=== PATIENT | female | born 1985 | race Caucasian/White ===

== ENCOUNTER 2016-10-21 15:41 | Emergency (ER) | payer BC ==
[2016-10-21 15:51] VITALS: BP 121/75
--- NOTE | 2016-10-21 16:08 | EDM.PDOC ---
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 Ultrasound is not available at this facility this weekend. When patient was informed of this, she elected not to have a medical screening examination and plans to drive to [facility] in [place] where ultrasound is available. 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 (See Below) Other OB/BYN History: x1 - Infectious Disease History Infectious Disease History: Reports: Chicken Pox - Past Surgical History Musculoskeletal Surgical History: Reports: Other (See Below) Social & Family History - Family History Family Medical History: Noncontributory - Tobacco Use Smoking Status *Q: Never Smoker Second Hand Smoke Exposure: No - Recreational Drug Use Recreational Drug Use: No ED ROS GENERAL - Review of Systems Review Of Systems: Unable To Obtain (Patient declined medical screening exam.) ED EXAM - Physical Exam Exam: Not Obtained (Patient declined medical examination.) Course - Vital Signs Last Recorded V/S: Last Vital Signs Temp 36.4 C 10/21/16 15:50 Pulse 87 10/21/16 15:50 Resp 16 10/21/16 15:50 BP 121/75 10/21/16 15:50 Pulse Ox 100 10/21/16 15:50 Departure - Departure Time of Disposition: 16:05 Disposition: Left Without Being Seen 07 Condition: Undetermined Clinical Impression: Patient left without being seen - Discharge Information Forms: Refusal of Medical Screening I have read and agree with the documentation that has been completed regarding this visit. By signing this record, I attest that the documentation was completed in my physical presence and is an accurate record of the encounter.
== END 2016-10-21 16:03 | disposition left against medical advice (07) ==
LOC: DL.ED 15:41
DX: Z53.21 Procedure and treatment not carried out due to patient leaving prior to being seen by health care provider (principal)

== ENCOUNTER 2016-11-02 06:27 | Day surgery (SDC) | payer BC ==
[~2016-11-02 06:27] MED LIST: Oxytocin/Normal Saline 30 UNIT/500 ML BAG IV SCH; Sodium Chloride 0.9% 1,000 ML IV SCH; Sodium Chloride 0.9% 10 ML Syringe FLUSH PRN
[2016-11-02] MEDS ORDERED: Oxytocin/Normal Saline 30 UNIT/500 ML BAG ONE (06:29)
[2016-11-02] MEDS ORDERED: Ferric Subsulfate Topical Soln 8 GM (8 ML) Bottle ONE (06:29)
[2016-11-02] MEDS ORDERED: Silver Nitrate Applicator Each ONE (06:29)
[2016-11-02] MEDS ORDERED: Midazolam 1 MG/ML 2 ML SDV ONE (06:46)
[2016-11-02] MEDS ORDERED: Propofol 200 MG/20 ML SDV ONE (06:47)
[2016-11-02] MEDS ORDERED: Ondansetron 4 MG/2 ML SDV ONE (06:47)
[2016-11-02] MEDS ORDERED: fentaNYL 100 MCG/2 ML SDV ONE (06:47)
[2016-11-02] MEDS ORDERED: Lidocaine 1% 50 MG/5 ML Syringe ONE (06:47)
--- NOTE | 2016-11-02 07:07 | PCM.PREANE ---
Preanesthetic Assessment - Procedure Proposed Procedure: D&C - Anesthesia/Transfusion/Family Hx Anesthesia History: Prior Anesthesia Without Reaction Family History of Anesthesia Reaction: No Transfusion History: No Prior Transfusion(s) Intubation History: Unknown - Review of Systems General: No Symptoms Pulmonary: No Symptoms Cardiovascular: No Symptoms Gastrointestinal: No Symptoms Neurological: No Symptoms Other: Reports: None (complaining of pain due to cramping. ) - Physical Assessment NPO Status Date: 11/01/16 NPO Status Time: 20:00 Pulse: 80 O2 Sat by Pulse Oximetry: 100 Respiratory Rate: 16 Blood Pressure: 100/68 Temperature: 97.9 F Height: 1.68 m Weight: 58.06 kg ASA Class: 1 Mental Status: Alert & Oriented x3 Airway Class: Mallampati = 2 Dentition: Reports: Normal Dentition Thyro-Mental Finger Breadths: 3 Mouth Opening Finger Breadths: 3 ROM/Head Extension: Full Lungs: Clear to Auscultation, Normal Respiratory Effort Cardiovascular: Regular Rate, Regular Rhythm - Allergies Allergies/Adverse Reactions: Allergies Allergy/AdvReac Type Severity Reaction Status Date / Time No Known Allergies Allergy Verified 11/02/16 06:46 - Blood Blood Available: No Product(s) Available: None - Anesthesia Plan Pre-Op Medication Ordered: None - Acknowledgements Anesthesia Type Planned: General Anesthesia Pt an Appropriate Candidate for the Planned Anesthesia: Yes Alternatives and Risks of Anesthesia Discussed w Pt/Guardian: Yes Pt/Guardian Understands and Agrees with Anesthesia Plan: Yes Additional Comments: Pain scale of 5 to 6 due cramping. Treated with 100 mcg fentanyl preoperatively. 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 Other OB/BYN History: x2 Musculoskeletal History: Reports: None Neurological History: Reports: Headaches, Chronic Psychiatric History: Reports: None Endocrine/Metabolic History: Reports: None Hematologic History: Reports: Anemia, Other (See Below) Other Hematologic History: BLOOD TYPE B+ Immunologic History: Reports: None Oncologic (Cancer) History: Reports: None Dermatologic History: Reports: None - Infectious Disease History Infectious Disease History: Reports: Chicken Pox - Past Surgical History Head Surgeries/Procedures: Reports: None HEENT Surgical History: Reports: Oral Surgery Cardiovascular Surgical History: Reports: None Respiratory Surgical History: Reports: None GI Surgical History: Reports: None Female Surgical History: Reports: Section Endocrine Surgical History: Reports: None Neurological Surgical History: Reports: None Musculoskeletal Surgical History: Reports: Other (See Below) Other Musculoskeletal Surgeries/Procedures:: foot surgery. S/P BILAT FEET PLANTAR FASCITIS & SPUR REMOVAL 2009 Oncologic Surgical History: Reports: None Dermatological Surgical History: Reports: None - SUBSTANCE USE Smoking Status *Q: Former Smoker Second Hand Smoke Exposure: No Recreational Drug Use History: No - HOME MEDS Home Medications: Home Meds Ferrous Sulfate [Iron] 325 mg PO PCBREAKFAST 10/21/16 [History] Pnv No.122/Iron/Folic Acid [ Multi Tablet] 1 each PO DAILY 10/21/16 [ History] Acetaminophen [Acetaminophen Extra Strength] 1 - 2 tab PO ASDIRECTED PRN [History] Ibuprofen [Motrin] 1 tab PO Q6H PRN 11/01/16 [History] oxyCODONE HCl/Acetaminophen [Endocet 5-325 Tablet] 1 tab PO ASDIRECTED PRN 11/01 [History] - CURRENT (IN HOUSE) MEDS Current Meds: Current Medications Oxytocin/Sodium Chloride (Pitocin In Ns 30 Unit/500 Ml) 30 unit in 500 mls @ 25 mls/hr IV ONARRIVE BRE Sodium Chloride (Normal Saline) 1,000 mls @ 125 mls/hr IV ASDIRECTED BRE Sodium Chloride (Saline Flush) 10 ml FLUSH ASDIRECTED PRN PRN Reason: Keep Vein Open Discontinued Medications Fentanyl (Sublimaze) Confirm Administered Dose 200 mcg .ROUTE .STK-MED ONE Stop: 11/02/16 06:48 Ferric Subsulfate (Astringyn) Confirm Administered Dose 8 gm .ROUTE .STK-MED ONE Stop: 11/02/16 06:30 Oxytocin/Sodium Chloride (Pitocin In Ns 30 Unit/500 Ml) Confirm Administered Dose 30 unit in 500 mls @ as directed .ROUTE .STK-MED ONE Stop: 11/02/16 06:30 Lidocaine HCl (Xylocaine 1%) Confirm Administered Dose 50 mg .ROUTE .STK-MED ONE Stop: 11/02/16 06:48 Midazolam HCl (Versed 1 Mg/Ml) Confirm Administered Dose 2 mg .ROUTE .STK-MED ONE Stop: 11/02/16 06:47 Ondansetron HCl (Zofran) Confirm Administered Dose 4 mg .ROUTE .STNanigans-MED ONE Stop: 11/02/16 06:48 Propofol (Diprivan 20 Ml) Confirm Administered Dose 200 mg .ROUTE .STNanigans-MED ONE Stop: 11/02/16 06:48 Silver Nitrate (Silver Nitrate) Confirm Administered Dose 1 each .ROUTE .Trekea- MED ONE Stop: 11/02/16 06:30
[2016-11-02] MEDS ORDERED: Ketorolac 30 MG/ML SDV ONE (08:46)
--- NOTE | 2016-11-02 09:11 | PCM.POSTAN ---
POST ANESTHESIA ASSESSMENT - MENTAL STATUS Mental Status: Alert, Oriented - VITAL SIGNS Pulse Rate: 72 SaO2: 99 Resp Rate: 14 Blood Pressure: 122/72 Temperature: 97.8 F - RESPIRATORY Respiratory Status: Respiratory Rate WNL, Airway Patent, O2 Saturation Stable - CARDIOVASCULAR CV Status: Pulse Rate WNL, Blood Pressure Stable - GASTROINTESTINAL GI Status: No Symptoms - PAIN Pain Score: 1 (She rated her pain as 1-2) - POST OP HYDRATION Hydration Status: Adequate & Stable - OBSERVATIONS Free Text/Narrative:: Tolerated procedure well. Deny Nausea or vomiting. Pain is under control. Ready for discharge
[2016-11-02 10:18] VITALS: BP 100/64
--- NOTE | 2016-11-02 10:36 | OR ---
DATE: 11/02/2016 PREOPERATIVE DIAGNOSES: 1. Incomplete first trimester spontaneous with retained products of conception. 2. Vaginal bleeding and cramping. 3. B positive blood type. POSTOPERATIVE DIAGNOSES: 1. Incomplete first trimester spontaneous with retained products of conception. 2. Vaginal bleeding and cramping. 3. B positive blood type. PROCEDURE: Dilation and curettage. WATERPROOFER: None. COMPLICATIONS: None. ESTIMATED BLOOD LOSS: Less than 100 mL. FINDINGS: This is a 31-year-old G3, P2, as a first trimester. Nonviable with retained products of conception. Has been followed in the clinic with vaginal bleeding, cramping, and serial ultrasounds confirming a nonviable intrauterine with retained products of conception. Her hCG levels have been dropping, and she has had persistent vaginal bleeding and cramping. At this time, they have decided to proceed with surgical intervention. Scheduled for D and C on 11/02/2016. She presented as scheduled. Please see her episode and also preop H and P for further details. She is known Rh positive with a blood type of B positive. The patient underwent general anesthesia without complication. She was prepped and draped in the usual sterile manner in dorsal lithotomy position. Catheter was used, and a small amount of clear urine noted. Bimanual exam confirmed a 6- to 8-week size uterus retroflexed, retroverted, and freely mobile with no palpable adnexal masses. A weighted vaginal speculum was placed. The anterior lip of the cervix was grasped with a single-tooth tenaculum. Uterus sounded to 10 cm. The cervix was dilated to the largest #20 Hegar dilator without difficulty. A curved #10 suction tip was used, and the uterus was emptied of its contents by suction curettage. A sharp curette was then used to ensure that the uterine soto were clear. There did not appear to be any remaining tissue. The uterus was then sounded again between 9 and 10 cm. There did not appear to be any significant uterine bleeding, and the Pitocin continued to infuse. The vaginal instruments were removed without difficulty, and a bimanual exam again showed the uterus is firm, retroverted, and retroflexed with an unchanged bimanual exam. The patient tolerated the procedure well, and there were no intraoperative complications. She was awakened and transferred to the recovery room in good condition. Estimated blood loss as noted with less than 100 mL. SPECIMEN: Will be sent to Pathology. [facility] /[id number]
[2016-11-02] MEDS ORDERED: Midazolam 1 MG/ML 2 ML SDV IV ONE (16:23)
[2016-11-02] MEDS ORDERED: Ondansetron 4 MG/2 ML SDV IV ONE (16:23)
[2016-11-02] MEDS ORDERED: fentaNYL 100 MCG/2 ML SDV IV ONE (16:23)
[2016-11-02] MEDS ORDERED: Ketorolac 30 MG/ML SDV IVPUSH ONE (16:23)
[2016-11-02] MEDS ORDERED: Propofol 200 MG/20 ML SDV IV ONE (16:23)
== END 2016-11-02 10:05 | disposition home or self-care (01) ==
LOC: DL.SDS 06:27
PROVIDERS: ATTEND Family Medicine
DX: O03.4 Incomplete spontaneous abortion without complication (principal); N93.9 Abnormal uterine and vaginal bleeding, unspecified; Z87.891 Personal history of nicotine dependence; Z98.890 Other specified postprocedural states
CPT/HCPCS: 59812; J1885; J2250; J2405; J2590; J2704; J3010; J7030

== ENCOUNTER 2017-09-06 01:21 | Inpatient (IN) | payer BC ==
[2017-09-06] MEDS: Lactated Ringers 1,000 ML IV SCH ×4 (01:55→12:15)
[2017-09-06] MEDS ORDERED: Oxytocin/Normal Saline 60 UNIT/1,000 ML BAG ONE (02:01)
[2017-09-06] MEDS ORDERED: Tranexamic Acid 1,000 MG in Sodium Chloride 0.9% 100 ML IV PRN (02:32)
[2017-09-06] MEDS ORDERED: ceFAZolin 2 GM in Premix Bag 1 BAG IV ONE (02:32)
[2017-09-06] MEDS ORDERED: Sodium Chloride 0.9% 10 ML Syringe FLUSH PRN (02:32)
[2017-09-06] MEDS ORDERED: Citric Acid/Sodium Citrate Solution 30 ML Cup PO ONE (02:32)
[2017-09-06] MEDS ORDERED: Lactated Ringers 1,000 ML IV SCH (02:45)
[2017-09-06] MEDS ORDERED: Oxytocin/Normal Saline 30 UNIT/500 ML BAG IV SCH (03:00)
[2017-09-06] MEDS ORDERED: Ondansetron 4 MG/2 ML SDV IV PRN (03:53)
[2017-09-06] MEDS ORDERED: Methylergonovine 0.2 MG/1 ML Amp IM PRN (03:53)
[2017-09-06] MEDS ORDERED: Acetaminophen/oxyCODONE 325-5 MG Tab PO PRN (03:53)
[2017-09-06] MEDS ORDERED: Misoprostol 400 MCG (4 X 100 MCG TAB) RECTAL PRN (03:53)
[2017-09-06] MEDS ORDERED: diphenhydrAMINE 50 MG/ML SDV IVPUSH PRN (03:53)
[2017-09-06] MEDS ORDERED: Naloxone 2 MG/2 ML Syringe IVPUSH PRN (03:53)
[2017-09-06] MEDS ORDERED: ePHEDrine 50 MG/ML SDV IVPUSH PRN (03:53)
[2017-09-06] MEDS ORDERED: Acetaminophen 325 MG Tab PO PRN (03:53)
[2017-09-06] MEDS ORDERED: Carboprost Tromethamine 250 MCG/1 ML Amp IM ONE (03:53)
[2017-09-06] MEDS ORDERED: Ketorolac 30 MG/ML SDV IVPUSH SCH (04:00)
--- NOTE | 2017-09-06 04:44 | OR ---
DATE: 09/06/2017 PREOPERATIVE DIAGNOSES: 1. A 31-year-old 4, para 1-1-1-2 female at 38 and 6/7 weeks' gestation, in active labor. 2. History of 2 prior sections, scheduled for elective repeat section next week. 3. B positive blood type, group B Streptococcus negative, rubella immune. 4. Admission laboratory data; hemoglobin 12.2, platelet count 199, white count 8.6. POSTOPERATIVE DIAGNOSES: 1. A 31-year-old 4, para 1-1-1-2 female at 38 and 6/7 weeks' gestation, in active labor. 2. History of 2 prior sections, scheduled for elective repeat section next week. 3. B positive blood type, group B Streptococcus negative, rubella immune. 4. Admission laboratory data; hemoglobin 12.2, platelet count 199, white count 8.6. 5. Now 4, para 2-1-1-3 with a viable male infant, weight 7 pounds 4 ounces. scores of 8 and 9 at 1 and 5 minutes respectively. PROCEDURE PERFORMED: Urgent elective repeat low-transverse section. HOUSE SITTER: Halle Garner MD FINDINGS: This delightful 31-year-old G4, P1-1-1-2, presented at 38 and 6/7 weeks' gestation with onset of contractions today, which were getting harder, stronger, and closer together and presented for evaluation, was found to be in early active labor. She is scheduled for elective repeat section next week, and the decision were made to proceed with her surgery today. NST on arrival was reactive and reassuring. Lab work on admission showed hemoglobin 12.2 with a platelet count 199 and a white count of 8.6. The patient was given 2 g of Ancef preop as planned and Bicitra. She subsequently was brought down to the OR and underwent spinal anesthesia with excellent results. She was prepped and draped in the usual sterile manner, and a purple skin incision was used to jeanine her old Pfannenstiel incision. The skin incision was made with a scalpel. Then, electrocautery was used to divide down to the subcutaneous tissue through the fascia, which was divided transversely. Inferior and superior fascial flaps were developed with sharp and blunt dissection. The rectus was identified and divided in the midline. The peritoneum was identified and entered bluntly. Incision was extended, and we had excellent visualization of the lower uterine segment. We did use sharp and blunt and electrocautery dissection to take the adhesions and the bladder flap down off the anterior lower uterine segment and developed a bladder flap. A stab incision was made into the lower uterine segment which was quite thin. Return of clear amniotic fluid was noted. Incision was extended bilaterally with blunt dissection with excellent results. The vertex was elevated up into the incision without difficulty, and a viable male infant was easily delivered. The baby was in a JADE position. Baby had a spontaneous cry at and was immediately dried and suctioned by Dr. Santillan. The cord was doubly clamped and cut by oh, and a cord blood sample was obtained. The baby was carried to the waiting nursery staff, and scores were noted to be 8 and 9 at 1 and 5 minutes respectively. The weight was later noted to be 7 pounds 4 ounces. The placenta was then removed and later inspected and found to be complete intact with a battledore's insertion and a 3-vessel cord. Uterus was wiped clean and dry, and all membrane and placental remnants were removed with ring forceps. Uterus appeared completely clear of clots and placental and membrane remnants. The incision edges were grasped with Delgado forceps and closed with a running locking #1 Vicryl with good results and good hemostasis. Incision was examined and found to be hemostatic. Gutters were examined, and all clots removed. The irrigation was performed. Again, there was no sign of bleeding, and the incision was examined again and found to be hemostatic. The large Eduar retractor was then removed. Counts were correct. The peritoneum and muscle layer closed with a running 0 Vicryl suture. Fascia closed with 0 loop PDS suture in a running fashion with excellent results. Subcutaneous space was examined, and any bleeders were electrocauterized. Skin edges were brought together with velia. There were no intraoperative complications. All counts were correct. ANTIBIOTICS INFUSED: Ancef 2 g preop. Pitocin currently running IV infusion per protocol, and the uterus was firm. ESTIMATED BLOOD LOSS: 550 mL. FLUIDS: 1200 mL. URINE OUTPUT: Clear urine throughout procedure with volume 250 mL. Time-out was performed in my presence at the beginning of the procedure, and the patient was transferred to the recovery room in excellent condition. As noted, there were no intraoperative complications. [facility] /[id number]
[2017-09-06] MEDS: Simethicone 80 MG Tab.Chew PO SCH ×5 (09:44→21:36)
[2017-09-06] MEDS: Docusate Sodium 100 MG Cap PO PRN ×2 (09:45→21:37)
[2017-09-06] MEDS: Prenatal Multivitamin with Calcium/Folic Acid/Iron Tab PO SCH (09:45)
[2017-09-06] MEDS: Ketorolac 30 MG/ML SDV IVPUSH SCH ×3 (09:46→21:38)
[2017-09-06] MEDS ORDERED: Calcium Carbonate 500 MG Tab.Chew PO PRN (11:18)
[2017-09-06] MEDS ORDERED: Famotidine 20 MG Tab PO PRN (11:20)
[2017-09-06] MEDS ORDERED: Bupivacaine 0.75%/D5W 2 ML Amp INJECT ONE (13:47)
[2017-09-06] MEDS ORDERED: ePHEDrine 50 MG/ML SDV IV ONE (13:47)
[2017-09-06] MEDS ORDERED: Ketorolac 30 MG/ML SDV IVPUSH ONE (13:47)
[2017-09-06] MEDS ORDERED: Morphine PF 1 MG/ML Amp ONE (13:47)
[2017-09-06] MEDS ORDERED: Ondansetron 4 MG/2 ML SDV IV ONE (13:47)
[2017-09-06] MEDS ORDERED: Oxytocin/Normal Saline 30 UNIT/500 ML BAG IV ONE (15:45)
[2017-09-06] MEDS: Acetaminophen/oxyCODONE 325-5 MG Tab PO PRN (21:37)
[2017-09-07] MEDS: Acetaminophen/oxyCODONE 325-5 MG Tab PO PRN ×5 (02:49→21:42)
[2017-09-07] MEDS: Ibuprofen 800 MG Tab PO PRN ×2 (05:54→16:03)
[2017-09-07] MEDS: Simethicone 80 MG Tab.Chew PO SCH ×4 (08:17→21:10)
[2017-09-07] MEDS: Prenatal Multivitamin with Calcium/Folic Acid/Iron Tab PO SCH (08:17)
[2017-09-07] MEDS: Docusate Sodium 100 MG Cap PO PRN ×2 (08:18→21:10)
--- NOTE | 2017-09-07 15:43 | PN ---
DATE: 09/07/2017 The patient is postoperative day #1, status post repeat . Her and baby are both doing well. Her Noguera has already been removed. She is voiding. She has good pain control. Tolerating p.o. PHYSICAL EXAMINATION: Vital Signs: The patient is afebrile. Heart rate 70 to 80, blood pressure 130 to 140 over 63 to 89, respiratory rate 16 to 18, O2 saturation 98% to 99%. Patient's blood type is B positive. She is rubella immune. Preoperative hemoglobin was 12.2, hemoglobin this morning is 10.9, white count 8.5, platelets 182. Abdomen: Benign. Her dressing is clean, dry, and intact. Extremities: Have no tenderness, no edema. Uterus is firm below the umbilicus. Lochia is minimal. ASSESSMENT AND PLAN: Postoperative day #2, status post repeat . Mom and baby are both doing well. We will continue postop care. [facility] /[id number]
[2017-09-08] MEDS: Acetaminophen/oxyCODONE 325-5 MG Tab PO PRN ×5 (01:26→21:36)
[2017-09-08] MEDS: Ibuprofen 800 MG Tab PO PRN ×3 (01:27→16:59)
[2017-09-08] MEDS: Simethicone 80 MG Tab.Chew PO SCH ×5 (05:13→21:35)
[2017-09-08] MEDS: Docusate Sodium 100 MG Cap PO PRN ×2 (08:51→21:35)
[2017-09-08] MEDS: Prenatal Multivitamin with Calcium/Folic Acid/Iron Tab PO SCH (08:51)
--- NOTE | 2017-09-08 12:56 | PN ---
DATE: 09/08/2017 The patient is postoperative day 2, status post repeat . Mom and baby are both doing well. She is ambulating, voiding, tolerating p.o. Good pain control. She does have some tingling in her right hand and foot after spinal anesthesia, but still has very good use of all extremities. PHYSICAL EXAMINATION: Vital Signs: Patient is afebrile. heart rate 74 to 84, blood pressure 121/85, respiratory rate 16 to 18, and O2 sat 99 to 100%. Abdomen: Benign. Extremities: Have no tenderness. No edema. Incision is healing well. The patient's blood type is B positive. She is rubella immune. Hemoglobin postoperatively was 10.9 from 12.2. ASSESSMENT AND PLAN: By postoperative day #2, status post repeat section. Mom and baby are both doing well. Continue postop care. Likely discharge tomorrow. [facility] /[id number]
[2017-09-09] MEDS: Ibuprofen 800 MG Tab PO PRN ×2 (00:45→08:29)
[2017-09-09] MEDS: Acetaminophen/oxyCODONE 325-5 MG Tab PO PRN ×2 (02:05→06:39)
[2017-09-09 07:54] VITALS: BP 129/76
[2017-09-09] MEDS: Docusate Sodium 100 MG Cap PO PRN (08:29)
[2017-09-09] MEDS: Simethicone 80 MG Tab.Chew PO SCH (08:29)
[2017-09-09] MEDS: Prenatal Multivitamin with Calcium/Folic Acid/Iron Tab PO SCH (08:29)
== END 2017-09-09 10:45 | disposition home or self-care (01) | DRG 540 ==
LOC: DL.OBCHECK 01:21 → DL.OB 01:54 → OBSVTOIN 03:01
PROVIDERS: ADMIT Family Medicine; ATTEND Family Medicine
PROC: 10D00Z1 Extraction of Products of Conception, Low, Open Approach (ICD-10-PCS; principal; 2017-09-06)
PROC: 4A0H74Z Measurement of Products of Conception, Cardiac Electrical Activity, Via Natural or Artificial Opening (ICD-10-PCS; 2017-09-06)
DX: O34.211 Maternal care for low transverse scar from previous cesarean delivery (principal); Z3A.38 38 weeks gestation of pregnancy; Z37.0 Single live birth
CPT/HCPCS: 36415; 59409; 85025; 85027; 86850; 86900; 86901; A9270-GY; J0690; J1885; J2274; J2405; J2590; J7120